=== PATIENT | male | born 2000 | race Caucasian/White ===

== ENCOUNTER 2021-08-08 12:49 | Emergency (ER) | payer SELFPAY ==
[~2021-08-08] VITALS: Ht 182.9 cm; Wt 69.0 kg
[~2021-08-08 12:49] MED LIST: CIPRODEX1 ML OT; [UNRECOGNIZED DRUG - OTHER] AU
[2021-08-08] MEDS ORDERED: HYDROCO/APAP1 TA9 PO (16:14)
[2021-08-08 16:42] VITALS: BP 133/94
== END 2021-08-08 16:40 | disposition home or self-care (01) | DRG 563 ==
LOC: ED 12:49
DX: S42.022A Displaced fracture of shaft of left clavicle, initial encounter for closed fracture (principal); V86.56XA Driver of dirt bike or motor/cross bike injured in nontraffic accident, initial encounter; Y93.I9 Activity, other involving external motion; Y92.830 Public park as the place of occurrence of the external cause